=== PATIENT | male | born 1965 | race Caucasian/White ===

== ENCOUNTER 2018-01-15 13:08 | Emergency (ER) | payer OTHER ==
[2018-01-15] MEDS: morphine 10 MG INJ IM (17:18)
[2018-01-15 17:31] LABS: ADD UMIC NO; UR ASCORBIC ACID NEGATIVE (NEGATIVE); UR BILIRUBIN (Dip) NEGATIVE (NEGATIVE); UR BLOOD (Dip) NEGATIVE (NEGATIVE); UR CLARITY CLEAR (CLEAR); UR COLOR YELLOW (YELLOW); UR GLUCOSE (Dip) 3+ mg/dL (NEGATIVE); UR KETONES (Dip) TRACE mg/dL (NEGATIVE); UR LEUKOCYTE ESTERASE (Dip) NEGATIVE Leu/ul (NEGATIVE); UR NITRITE (Dip) NEGATIVE (NEGATIVE); UR TOTAL PROTEIN (Dip) NEGATIVE (NEGATIVE); UR UROBILINOGEN (Dip) NEGATIVE (NEGATIVE)
== END 2018-01-15 20:53 | disposition home or self-care (01) ==
LOC: E/R 13:08
DX: S70.02XA Contusion of left hip, initial encounter (principal); S80.02XA Contusion of left knee, initial encounter; E11.9 Type 2 diabetes mellitus without complications; I10 Essential (primary) hypertension; W18.39XA Other fall on same level, initial encounter; Y92.9 Unspecified place or not applicable; Z79.82 Long term (current) use of aspirin; Z79.4 Long term (current) use of insulin
CPT/HCPCS: 72100; 72170; 73510; 73562; 81003; 82962; 96372; 99284-25

== ENCOUNTER 2018-05-03 14:42 | Emergency (ER) | payer OTHER ==
[2018-05-03] MEDS: KETOROLAC 60 MG INJ IM (16:48)
== END 2018-05-03 17:46 | disposition home or self-care (01) ==
LOC: FTE 14:42
DX: M54.5 Low back pain (principal); I10 Essential (primary) hypertension; E11.9 Type 2 diabetes mellitus without complications; Z76.0 Encounter for issue of repeat prescription; Z79.4 Long term (current) use of insulin; Z79.82 Long term (current) use of aspirin; Z96.659 Presence of unspecified artificial knee joint
CPT/HCPCS: 96372; 99284-25

== ENCOUNTER 2019-06-21 10:06 | Inpatient (IN) | payer OTHER ==
[~2019-06-21 10:06] MED LIST: CEFAZOLIN 2 GM/50 ML (PMX) 50 ML IVPB
[2019-06-21] MEDS: SOD CHLORIDE 0.9% 1,000 ML IV (10:53)
[2019-06-21] MEDS ORDERED: LIDOCAINE 1% (MPF) 30 ML INJ (12:08)
[2019-06-21] MEDS ORDERED: HYDROmorphONE 2 MG/ML SYG (12:54)
[2019-06-21] MEDS ORDERED: ROCURONIUM 50 MG INJ (12:54)
[2019-06-21] MEDS ORDERED: PROPOFOL 20 ML (12:54)
[2019-06-21] MEDS ORDERED: LIDOCAINE 2% (SDV) 5 ML INJ (12:54)
[2019-06-21] MEDS ORDERED: MIDAZOLAM 1 MG/ML 2 ML INJ (12:55)
[2019-06-21] MEDS ORDERED: DEXAMETHASONE 4 MG/ML 5 ML INJ (13:27)
[2019-06-21] MEDS ORDERED: ONDANSETRON 4 MG INJ ×2 (13:27→13:44)
[2019-06-21] MEDS ORDERED: CEFAZOLIN 1 GM INJ (13:27)
[2019-06-21] MEDS ORDERED: LABETALOL HCL 20MG INJ (14:16)
[2019-06-21] MEDS: CEFAZOLIN 1 GM INJ (14:35)
[2019-06-21] MEDS: GELATIN SIZE 100 SPONGE (14:35)
[2019-06-21] MEDS: THROMBIN 5000 UNIT (RECOTHROM) VIAL (14:36)
[2019-06-21] MEDS: HEPARIN 1000 UNITS/ML 10 ML INJ (14:39)
[2019-06-21] MEDS ORDERED: ROPIVACAINE 0.5 % 30 ML VIAL (17:42)
[2019-06-21] MEDS ORDERED: DIPHENHYDRAMINE 50 MG CAP PO (18:30)
[2019-06-21] MEDS ORDERED: CEPASTAT LOZENGE MT (18:30)
[2019-06-21] MEDS ORDERED: AL HYDROX/MG HYDROX/SIMETH 30 ML CUP PO (18:30)
[2019-06-21] MEDS ORDERED: ACETAMINOPHEN 325 MG TAB PO (18:30)
[2019-06-21] MEDS ORDERED: morphine 1 MG/ML 30 ML (PCA) IV ×2 (18:30→19:00)
[2019-06-21] MEDS ORDERED: NALOXONE (0.4 MG/ML) INJ IV (18:30)
[2019-06-21] MEDS: BUPIVACAINE 0.5%/EPI (SDV) 30 ML INJ (18:38)
[2019-06-21] MEDS ORDERED: SUGAMMADEX SODIUM 200 MG/2 ML VIAL IV (18:38)
[2019-06-21] MEDS ORDERED: FENTAnyl 50 MCG/ML VIAL (18:38)
[2019-06-21] MEDS ORDERED: HYDROmorphONE 1 MG/5 ML IV SYRINGE IV ×3 (19:00→19:05)
[2019-06-21] MEDS ORDERED: ONDANSETRON 4 MG INJ IV (19:00)
[2019-06-21] MEDS ORDERED: HYDROmorphONE 1 MG/ML SYG (19:02)
[2019-06-21] MEDS: HYDROmorphONE 1 MG/5 ML IV SYRINGE IV (19:13)
[2019-06-21] MEDS ORDERED: HYDROmorphONE 0.2 MG/ML PCA (19:18)
[2019-06-21] MEDS: HYDROmorphONE 0.2 MG/ML PCA IV (19:44)
[2019-06-21] MEDS: SOD CHLORIDE 0.45% 1,000 ML IV (21:36)
[2019-06-21] MEDS: ACETAMINOPHEN 1000MG/100ML IV 100 ML IVPB (21:48)
[2019-06-21] MEDS: DIAZEPAM 5 MG TAB PO (22:26)
[2019-06-21] MEDS: ALPRAZOLAM 1 MG TAB PO (23:16)
[2019-06-22] MEDS ORDERED: GLUCOSE GEL 15 GRAM TUBE PO ×2 (00:30)
[2019-06-22] MEDS ORDERED: GLUCOSE GEL 15 GRAM TUBE BUCCAL (00:30)
[2019-06-22] MEDS ORDERED: GLUCAGON 1 MG INJ IM (00:30)
[2019-06-22] MEDS ORDERED: DEXTROSE 50% 50 ML SYRINGE IV ×2 (00:30)
[2019-06-22] MEDS: CEFAZOLIN 1 GM/50 ML (PMX) 50 ML IVPB ×5 (00:35→23:15)
[2019-06-22] MEDS: HYDROmorphONE 0.2 MG/ML PCA IV ×3 (01:07→22:17)
[2019-06-22] MEDS ORDERED: ACCU-CHEK XX (02:00)
[2019-06-22] MEDS: ACCU-CHEK XX (02:22)
[2019-06-22] MEDS: SOD CHLORIDE 0.45% 1,000 ML IV ×3 (04:26→17:41)
[2019-06-22 05:13] LABS: ADD MAN DIFF? NO
[2019-06-22 05:15] LABS: WHITE BLOOD COUNT 14.3 10^3/ul (4.8-10.8)
[2019-06-22 05:15] LABS: BASOPHILS % 0.1 % (0.0-2.0); HEMOGLOBIN 12.2 g/dl (14.0-18.0); LYMPHOCYTES # 1.3 10^3/ul (0.8-2.9); LYMPHOCYTES % 8.8 % (15.0-51.0); MEAN CORPUSCULAR HEMOGLOBIN 30.3 pg (29.0-33.0); MEAN CORPUSCULAR HGB CONC 32.1 g/dl (32.0-37.0); MEAN CORPUSCULAR VOLUME 94.3 fl (82.0-101.0); MEAN PLATELET VOLUME 11.4 fl (7.4-10.4); MONOCYTE # 1.1 10^3/ul (0.3-0.9); MONOCYTES % 7.7 % (0.0-11.0); NEUTROPHIL # 11.9 10^3/ul (1.6-7.5); NEUTROPHILS % 82.8 % (39.0-77.0); PLATELET COUNT 298 10^3/UL (140-415); RED BLOOD COUNT 4.03 10^6/ul (4.70-6.10)
[2019-06-22 05:40] LABS: ANION GAP 7 (5-13); BLOOD UREA NITROGEN 19 mg/dl (7-20); CALCIUM 8.8 mg/dl (8.4-10.2); CARBON DIOXIDE 25 mmol/L (21-31); CHLORIDE 103 mmol/L (97-110); CREATININE 0.62 mg/dl (0.61-1.24); Estimated GFR > 60 mL/min (>60); GLUCOSE 227 mg/dl (70-220); POTASSIUM 4.5 mmol/L (3.5-5.1); SODIUM 135 mmol/L (135-144)
[2019-06-22] MEDS ORDERED: CEFAZOLIN 1 GM INJ ×4 (06:49→14:25)
[2019-06-22] MEDS ORDERED: MIDAZOLAM 1 MG/ML 2 ML INJ (07:43)
[2019-06-22] MEDS ORDERED: INSULIN ASPART [NOVOLOG] 3 ML PEN SC (07:50)
[2019-06-22] MEDS: INSULIN ASPART [NOVOLOG] 3 ML PEN SC ×4 (07:50→21:44)
[2019-06-22] MEDS ORDERED: morphine 10 MG INJ ×2 (08:18→11:38)
[2019-06-22] MEDS ORDERED: METOPROLOL (XL) 25 MG TAB PO (09:00)
[2019-06-22] MEDS: FERROUS SULFATE (EC) 325 MG TAB PO ×3 (09:00→20:23)
[2019-06-22] MEDS: METOPROLOL (XL) 25 MG TAB PO (09:00)
[2019-06-22] MEDS ORDERED: AMLODIPINE 10 MG TAB PO (09:00)
[2019-06-22] MEDS: DOCUSATE SODIUM 100 MG CAP PO ×2 (09:00→20:23)
[2019-06-22] MEDS: AMLODIPINE 10 MG TAB PO (09:00)
[2019-06-22] MEDS: POLYMYXIN/BACITRACIN 1L IRRIG IRR (09:37)
[2019-06-22] MEDS: LIDOCAINE 1%/EPI (1:100,000) (MDV) 20 ML (09:37)
[2019-06-22] MEDS: THROMBIN 5000 UNIT (RECOTHROM) VIAL (09:38)
[2019-06-22] MEDS: GELATIN SIZE 100 SPONGE (09:38)
[2019-06-22] MEDS: VANCOMYCIN 1 GM INJ (14:20)
[2019-06-22] MEDS ORDERED: PROPOFOL 100 ML (14:24)
[2019-06-22] MEDS ORDERED: LIDOCAINE 2% (SDV) 5 ML INJ (14:24)
[2019-06-22] MEDS ORDERED: ROCURONIUM 50 MG INJ (14:24)
[2019-06-22] MEDS ORDERED: ONDANSETRON 4 MG INJ (14:30)
[2019-06-22] MEDS ORDERED: NACL 0.9% 3 ML SYG IV (15:00)
[2019-06-22] MEDS ORDERED: BETHANECHOL 25 MG TAB PO (15:00)
[2019-06-22] MEDS ORDERED: MEPERIDINE 25 MG INJ (15:07)
[2019-06-22] MEDS: MEPERIDINE 25 MG INJ IV (15:24)
[2019-06-22] MEDS ORDERED: DIPHENHYDRAMINE 50 MG INJ IV (15:30)
[2019-06-22] MEDS ORDERED: HYDROmorphONE 1 MG/5 ML IV SYRINGE IV (15:30)
[2019-06-22] MEDS ORDERED: ONDANSETRON 4 MG INJ IV (15:30)
[2019-06-22] MEDS ORDERED: METOCLOPRAMIDE 10 MG INJ IV (15:30)
[2019-06-22] MEDS ORDERED: FENTAnyl 50 MCG/ML VIAL IV (15:30)
[2019-06-22] MEDS ORDERED: ACETAMINOPHEN 1000MG/100ML IV 100 ML IVPB (15:30)
[2019-06-22] MEDS ORDERED: morphine 2 MG INJ IV (15:30)
[2019-06-22] MEDS ORDERED: LABETALOL HCL 20MG INJ IV (15:30)
[2019-06-22] MEDS: morphine 2 MG INJ IV (15:35)
[2019-06-22] MEDS: INSULIN REGULAR, HUMAN 100 UNIT/1 ML 3ML VIAL SC (15:40)
[2019-06-22] MEDS: HYDROmorphONE 1 MG/5 ML IV SYRINGE IV ×2 (16:03→16:24)
[2019-06-22] MEDS: morphine 4 MG/ML VIAL IV ×2 (17:07→20:21)
[2019-06-22] MEDS: ACETAMINOPHEN 1000MG/100ML IV 100 ML IVPB ×2 (17:07→23:15)
[2019-06-22] MEDS: INSULIN GLARGINE [LANTus] (100 UNITS/ML) SYG SC (21:42)
[2019-06-23] MEDS: morphine 4 MG/ML VIAL IV ×8 (00:01→22:12)
[2019-06-23] MEDS: ALPRAZOLAM 1 MG TAB PO ×2 (00:02→22:12)
[2019-06-23] MEDS: SOD CHLORIDE 0.45% 1,000 ML IV ×4 (00:54→17:09)
[2019-06-23] MEDS ORDERED: ACCU-CHEK XX (02:00)
[2019-06-23] MEDS: ACCU-CHEK XX (02:00)
[2019-06-23] MEDS: DIAZEPAM 5 MG TAB PO ×4 (03:20→22:07)
[2019-06-23] MEDS: HYDROmorphONE 0.2 MG/ML PCA IV (04:23)
[2019-06-23] MEDS: ONDANSETRON 4 MG INJ IV ×4 (04:28→22:07)
[2019-06-23 05:02] LABS: ADD MAN DIFF? NO
[2019-06-23] MEDS: ACETAMINOPHEN 1000MG/100ML IV 100 ML IVPB ×2 (05:03→12:37)
[2019-06-23] MEDS: CEFAZOLIN 1 GM/50 ML (PMX) 50 ML IVPB ×2 (05:04→12:59)
[2019-06-23 05:05] LABS: BASOPHILS % 0.1 % (0.0-2.0); EOSINOPHILS % 0.1 % (0.0-7.0); HEMATOCRIT 34.5 % (42.0-52.0); HEMOGLOBIN 11.1 g/dl (14.0-18.0); LYMPHOCYTES # 1.7 10^3/ul (0.8-2.9); MEAN CORPUSCULAR HEMOGLOBIN 30.9 pg (29.0-33.0); MEAN CORPUSCULAR HGB CONC 32.2 g/dl (32.0-37.0); MEAN CORPUSCULAR VOLUME 96.1 fl (82.0-101.0); MONOCYTE # 1.1 10^3/ul (0.3-0.9); MONOCYTES % 7.5 % (0.0-11.0); NEUTROPHIL # 12.1 10^3/ul (1.6-7.5); NEUTROPHILS % 80.9 % (39.0-77.0); PLATELET COUNT 230 10^3/UL (140-415); RED BLOOD COUNT 3.59 10^6/ul (4.70-6.10); RED CELL DISTRIBUTION WIDTH 12.6 % (11.5-14.5)
[2019-06-23 05:25] LABS: ANION GAP 3 (5-13); BLOOD UREA NITROGEN 9 mg/dl (7-20); CALCIUM 8.2 mg/dl (8.4-10.2); CARBON DIOXIDE 33 mmol/L (21-31); CHLORIDE 99 mmol/L (97-110); Estimated GFR > 60 mL/min (>60); GLUCOSE 159 mg/dl (70-220); POTASSIUM 3.8 mmol/L (3.5-5.1); SODIUM 135 mmol/L (135-144)
[2019-06-23] MEDS: DOCUSATE SODIUM 100 MG CAP PO ×3 (08:51→20:37)
[2019-06-23] MEDS: AMLODIPINE 10 MG TAB PO (08:51)
[2019-06-23] MEDS: FERROUS SULFATE (EC) 325 MG TAB PO ×5 (08:51→20:37)
[2019-06-23] MEDS: METOPROLOL (XL) 25 MG TAB PO (08:52)
[2019-06-23] MEDS: ENOXAPARIN 40 MG/0.4 ML SYG SC (08:55)
[2019-06-23] MEDS: INSULIN ASPART [NOVOLOG] 3 ML PEN SC ×4 (08:56→21:00)
[2019-06-23] MEDS: KETOROLAC 30 MG INJ IV (09:54)
[2019-06-23] MEDS: PANTOPRAZOLE 40 MG INJ IV (10:32)
[2019-06-23 11:13] LABS: ADD UMIC YES; UR ASCORBIC ACID NEGATIVE (NEGATIVE); UR BACTERIA FEW /HPF (NONE SEEN); UR BILIRUBIN (Dip) NEGATIVE (NEGATIVE); UR BLOOD (Dip) 2+ mg/dL (NEGATIVE); UR CLARITY CLEAR (CLEAR); UR COLOR YELLOW (YELLOW); UR GLUCOSE (Dip) 3+ mg/dL (NEGATIVE); UR KETONES (Dip) 2+ mg/dL (NEGATIVE); UR LEUKOCYTE ESTERASE (Dip) NEGATIVE Leu/ul (NEGATIVE); UR NITRITE (Dip) NEGATIVE (NEGATIVE); UR RBC 32 /HPF (0-5); UR SPECIFIC GRAVITY (Dip) 1.017 (1.003-1.030); UR TOTAL PROTEIN (Dip) NEGATIVE (NEGATIVE); UR UROBILINOGEN (Dip) NEGATIVE (NEGATIVE); UR WBC 1 /HPF (0-5)
[2019-06-23 12:10] LABS: HEMATOCRIT 34.9 % (42.0-52.0); HEMOGLOBIN 11.5 g/dl (14.0-18.0)
[2019-06-23] MEDS: METOCLOPRAMIDE 10 MG INJ IV (17:42)
[2019-06-23] MEDS: HYDROCODONE/APAP (10/325) TAB PO (20:37)
[2019-06-23] MEDS: INSULIN GLARGINE [LANTus] (100 UNITS/ML) SYG SC (20:40)
[2019-06-24] MEDS: METOCLOPRAMIDE 10 MG INJ IV ×5 (00:53→17:12)
[2019-06-24] MEDS: morphine 4 MG/ML VIAL IV ×7 (00:55→18:55)
[2019-06-24] MEDS: ACCU-CHEK XX (02:00)
[2019-06-24] MEDS: HYDROCODONE/APAP (10/325) TAB PO ×2 (03:23→09:00)
[2019-06-24] MEDS: PANTOPRAZOLE 40 MG INJ IV (04:31)
[2019-06-24] MEDS: ONDANSETRON 4 MG INJ IV ×2 (04:31→14:35)
[2019-06-24] MEDS: SOD CHLORIDE 0.45% 1,000 ML IV ×2 (04:40→14:47)
[2019-06-24 04:54] LABS: ADD MAN DIFF? NO
[2019-06-24 05:04] LABS: WHITE BLOOD COUNT 19.1 10^3/ul (4.8-10.8)
[2019-06-24 05:04] LABS: BASOPHILS % 0.2 % (0.0-2.0); EOSINOPHILS % 0.1 % (0.0-7.0); HEMATOCRIT 33.9 % (42.0-52.0); LYMPHOCYTES # 0.9 10^3/ul (0.8-2.9); LYMPHOCYTES % 4.6 % (15.0-51.0); MEAN CORPUSCULAR HEMOGLOBIN 30.6 pg (29.0-33.0); MEAN CORPUSCULAR HGB CONC 32.4 g/dl (32.0-37.0); MEAN CORPUSCULAR VOLUME 94.2 fl (82.0-101.0); MEAN PLATELET VOLUME 11.1 fl (7.4-10.4); MONOCYTE # 1.3 10^3/ul (0.3-0.9); MONOCYTES % 6.9 % (0.0-11.0); NEUTROPHIL # 16.7 10^3/ul (1.6-7.5); NEUTROPHILS % 87.5 % (39.0-77.0); PLATELET COUNT 265 10^3/UL (140-415)
[2019-06-24 05:22] LABS: IRON 19 ug/dl (35-150)
[2019-06-24 05:26] LABS: ANION GAP 11 (5-13); BLOOD UREA NITROGEN 11 mg/dl (7-20); CALCIUM 8.7 mg/dl (8.4-10.2); CARBON DIOXIDE 24 mmol/L (21-31); CHLORIDE 98 mmol/L (97-110); CREATININE 0.63 mg/dl (0.61-1.24); Estimated GFR > 60 mL/min (>60); GLUCOSE 206 mg/dl (70-220); POTASSIUM 4.3 mmol/L (3.5-5.1); SODIUM 133 mmol/L (135-144)
[2019-06-24 05:31] LABS: % IRON SATURATION 8 % SAT (22-52); TOTAL IRON BINDING CAPACITY 233 ug/dl (241-421)
[2019-06-24] MEDS: INSULIN ASPART [NOVOLOG] 3 ML PEN SC ×4 (08:59→20:46)
[2019-06-24] MEDS: DIAZEPAM 5 MG TAB PO ×2 (08:59→17:38)
[2019-06-24] MEDS: DOCUSATE SODIUM 100 MG CAP PO ×2 (09:00→20:40)
[2019-06-24] MEDS: AMLODIPINE 10 MG TAB PO (09:00)
[2019-06-24] MEDS: METOPROLOL (XL) 25 MG TAB PO (09:00)
[2019-06-24] MEDS: FERROUS SULFATE (EC) 325 MG TAB PO ×3 (09:00→20:40)
[2019-06-24] MEDS: CEFAZOLIN 2 GM/50 ML (PMX) 50 ML IVPB ×3 (10:02→22:16)
[2019-06-24] MEDS ORDERED: BISACODYL 10 MG SUPP PR (14:30)
[2019-06-24] MEDS: KETOROLAC 30 MG INJ IV ×2 (14:35→22:17)
[2019-06-24] MEDS ORDERED: SOD CHLORIDE 0.9% IVPB (15:00)
[2019-06-24] MEDS ORDERED: SOD FERRIC GLUC COMPLX IVPB (15:00)
[2019-06-24] MEDS: INSULIN GLARGINE [LANTus] (100 UNITS/ML) SYG SC (20:48)
[2019-06-24] MEDS: HYDROmorphONE 2 MG/ML SYG IV (20:49)
[2019-06-24] MEDS: ALPRAZOLAM 1 MG TAB PO (22:26)
[2019-06-25] MEDS: METOCLOPRAMIDE 10 MG INJ IV ×4 (00:46→17:50)
[2019-06-25] MEDS: HYDROmorphONE 2 MG/ML SYG IV ×6 (01:25→22:11)
[2019-06-25] MEDS: SOD CHLORIDE 0.45% 1,000 ML IV ×2 (01:25→02:54)
[2019-06-25] MEDS: ACCU-CHEK XX (02:00)
[2019-06-25 05:26] LABS: ADD MAN DIFF? NO
[2019-06-25] MEDS: CEFAZOLIN 2 GM/50 ML (PMX) 50 ML IVPB ×3 (05:32→22:10)
[2019-06-25] MEDS: PANTOPRAZOLE 40 MG INJ IV (05:32)
[2019-06-25 05:41] LABS: BASOPHILS % 0.2 % (0.0-2.0); EOSINOPHILS # 0.6 10^3/ul (0.0-0.5); EOSINOPHILS % 4.3 % (0.0-7.0); HEMATOCRIT 29.3 % (42.0-52.0); HEMOGLOBIN 9.5 g/dl (14.0-18.0); LYMPHOCYTES # 1.9 10^3/ul (0.8-2.9); LYMPHOCYTES % 14.2 % (15.0-51.0); MEAN CORPUSCULAR HEMOGLOBIN 31.1 pg (29.0-33.0); MEAN CORPUSCULAR HGB CONC 32.4 g/dl (32.0-37.0); MEAN CORPUSCULAR VOLUME 96.1 fl (82.0-101.0); MEAN PLATELET VOLUME 11.4 fl (7.4-10.4); MONOCYTE # 1.3 10^3/ul (0.3-0.9); MONOCYTES % 10.2 % (0.0-11.0); NEUTROPHIL # 9.3 10^3/ul (1.6-7.5); NEUTROPHILS % 70.6 % (39.0-77.0); PLATELET COUNT 230 10^3/UL (140-415); RED BLOOD COUNT 3.05 10^6/ul (4.70-6.10); RED CELL DISTRIBUTION WIDTH 12.3 % (11.5-14.5)
[2019-06-25 05:41] LABS: WHITE BLOOD COUNT 13.1 10^3/ul (4.8-10.8)
[2019-06-25 05:56] LABS: ANION GAP 4 (5-13); BLOOD UREA NITROGEN 17 mg/dl (7-20); CALCIUM 8.1 mg/dl (8.4-10.2); CARBON DIOXIDE 31 mmol/L (21-31); CHLORIDE 98 mmol/L (97-110); CREATININE 0.64 mg/dl (0.61-1.24); Estimated GFR > 60 mL/min (>60); GLUCOSE 239 mg/dl (70-220); POTASSIUM 3.5 mmol/L (3.5-5.1); SODIUM 133 mmol/L (135-144)
[2019-06-25] MEDS: METOPROLOL (XL) 25 MG TAB PO (09:01)
[2019-06-25] MEDS: DOCUSATE SODIUM 100 MG CAP PO ×2 (09:01→20:30)
[2019-06-25] MEDS: AMLODIPINE 10 MG TAB PO (09:01)
[2019-06-25] MEDS: FERROUS SULFATE (EC) 325 MG TAB PO ×3 (09:01→20:25)
[2019-06-25] MEDS: INSULIN ASPART [NOVOLOG] 3 ML PEN SC ×4 (09:02→20:29)
[2019-06-25 11:20] LABS: ADD MAN DIFF? NO
[2019-06-25 11:23] LABS: HEMATOCRIT 29.6 % (42.0-52.0)
[2019-06-25 11:23] LABS: HEMOGLOBIN 9.6 g/dl (14.0-18.0)
[2019-06-25 14:17] LABS: WHITE BLOOD COUNT 15.8 10^3/ul (4.8-10.8)
[2019-06-25 14:17] LABS: BASOPHILS % 0.1 % (0.0-2.0); EOSINOPHILS # 0.5 10^3/ul (0.0-0.5); HEMATOCRIT 30.3 % (42.0-52.0); HEMOGLOBIN 9.7 g/dl (14.0-18.0); LYMPHOCYTES # 1.1 10^3/ul (0.8-2.9); LYMPHOCYTES % 7.2 % (15.0-51.0); MEAN CORPUSCULAR HEMOGLOBIN 30.6 pg (29.0-33.0); MEAN CORPUSCULAR VOLUME 95.6 fl (82.0-101.0); MEAN PLATELET VOLUME 11.9 fl (7.4-10.4); MONOCYTE # 1.4 10^3/ul (0.3-0.9); MONOCYTES % 8.6 % (0.0-11.0); NEUTROPHIL # 12.7 10^3/ul (1.6-7.5); NEUTROPHILS % 80.5 % (39.0-77.0); PLATELET COUNT 286 10^3/UL (140-415); RED BLOOD COUNT 3.17 10^6/ul (4.70-6.10); RED CELL DISTRIBUTION WIDTH 12.4 % (11.5-14.5)
[2019-06-25] MEDS: LINAGLIPTIN 5 MG TABLET PO (14:43)
[2019-06-25] MEDS: SOD FERRIC GLUC COMPLX 125 MG in SOD CHLORIDE 0.9% 100 ML IVPB (15:45)
[2019-06-25] MEDS: KETOROLAC 30 MG INJ IV ×2 (15:45→23:39)
[2019-06-25] MEDS: DIAZEPAM 5 MG TAB PO (16:41)
[2019-06-25] MEDS: INSULIN GLARGINE [LANTus] (100 UNITS/ML) SYG SC (20:28)
[2019-06-25] MEDS: ALPRAZOLAM 1 MG TAB PO (23:26)
[2019-06-26] MEDS: ACCU-CHEK XX (02:15)
[2019-06-26] MEDS: HYDROmorphONE 2 MG/ML SYG IV ×4 (02:21→15:06)
[2019-06-26] MEDS: DIAZEPAM 5 MG TAB PO ×2 (05:09→19:50)
[2019-06-26 05:18] LABS: ADD MAN DIFF? NO
[2019-06-26 05:23] LABS: WHITE BLOOD COUNT 11.6 10^3/ul (4.8-10.8)
[2019-06-26 05:23] LABS: BASOPHILS % 0.3 % (0.0-2.0); EOSINOPHILS # 0.7 10^3/ul (0.0-0.5); EOSINOPHILS % 6.3 % (0.0-7.0); HEMOGLOBIN 8.7 g/dl (14.0-18.0); LYMPHOCYTES # 1.9 10^3/ul (0.8-2.9); LYMPHOCYTES % 16.4 % (15.0-51.0); MEAN CORPUSCULAR HEMOGLOBIN 30.3 pg (29.0-33.0); MEAN CORPUSCULAR HGB CONC 32.2 g/dl (32.0-37.0); MEAN CORPUSCULAR VOLUME 94.1 fl (82.0-101.0); MEAN PLATELET VOLUME 11.3 fl (7.4-10.4); MONOCYTE # 1.4 10^3/ul (0.3-0.9); MONOCYTES % 11.7 % (0.0-11.0); NEUTROPHIL # 7.5 10^3/ul (1.6-7.5); NEUTROPHILS % 64.9 % (39.0-77.0); PLATELET COUNT 263 10^3/UL (140-415); RED BLOOD COUNT 2.87 10^6/ul (4.70-6.10); RED CELL DISTRIBUTION WIDTH 12.4 % (11.5-14.5)
[2019-06-26 05:44] LABS: ANION GAP 4 (5-13); BLOOD UREA NITROGEN 15 mg/dl (7-20); CARBON DIOXIDE 34 mmol/L (21-31); CHLORIDE 97 mmol/L (97-110); CREATININE 0.56 mg/dl (0.61-1.24); Estimated GFR > 60 mL/min (>60); GLUCOSE 188 mg/dl (70-220); POTASSIUM 3.3 mmol/L (3.5-5.1); SODIUM 135 mmol/L (135-144)
[2019-06-26] MEDS: PANTOPRAZOLE 40 MG INJ IV (06:04)
[2019-06-26] MEDS: METOCLOPRAMIDE 10 MG INJ IV ×5 (06:05→23:58)
[2019-06-26] MEDS: KETOROLAC 30 MG INJ IV (06:05)
[2019-06-26] MEDS: CEFAZOLIN 2 GM/50 ML (PMX) 50 ML IVPB ×2 (06:05→15:07)
[2019-06-26 07:43] LABS: OCCULT BLOOD STOOL NEGATIVE (NEGATIVE)
[2019-06-26] MEDS: DOCUSATE SODIUM 100 MG CAP PO ×2 (08:20→20:38)
[2019-06-26] MEDS: INSULIN ASPART [NOVOLOG] 3 ML PEN SC ×5 (08:20→20:45)
[2019-06-26] MEDS: LINAGLIPTIN 5 MG TABLET PO (08:21)
[2019-06-26] MEDS: FERROUS SULFATE (EC) 325 MG TAB PO ×3 (08:21→20:38)
[2019-06-26] MEDS: METOPROLOL (XL) 25 MG TAB PO (08:22)
[2019-06-26] MEDS: AMLODIPINE 10 MG TAB PO (08:22)
[2019-06-26 09:46] LABS: RETICULOCYTE COUNT # 0.066 X10^6 (0.020-0.110); RETICULOCYTE COUNT % 2.3 % (0.5-1.5)
[2019-06-26 09:46] LABS: RETICULOCYTE RBC 2.82
[2019-06-26 09:47] LABS: IRON 27 ug/dl (35-150)
[2019-06-26 09:56] LABS: % IRON SATURATION 13 % SAT (22-52); TOTAL IRON BINDING CAPACITY 210 ug/dl (241-421)
[2019-06-26 10:54] LABS: FOLATE 6.3 ng/ml (2.8-20.0)
[2019-06-26] MEDS: SOD FERRIC GLUC COMPLX 125 MG in SOD CHLORIDE 0.9% 100 ML IVPB (13:43)
[2019-06-26] MEDS: POTASSIUM CHLORIDE (SR) 20 MEQ TAB PO (17:52)
[2019-06-26] MEDS: HYDROmorphONE 1 MG/ML SYG IV ×2 (19:44→23:58)
[2019-06-26] MEDS: ALPRAZOLAM 1 MG TAB PO (20:38)
[2019-06-26] MEDS: INSULIN GLARGINE [LANTus] (100 UNITS/ML) SYG SC (20:44)
[2019-06-27] MEDS: ACCU-CHEK XX ×2 (02:00)
[2019-06-27] MEDS: HYDROmorphONE 1 MG/ML SYG IV ×3 (04:10→12:16)
[2019-06-27 05:08] LABS: ADD MAN DIFF? NO
[2019-06-27 05:15] LABS: WHITE BLOOD COUNT 13.9 10^3/ul (4.8-10.8)
[2019-06-27 05:15] LABS: ABNORMAL IP MESSAGE 1; BASOPHILS % 0.3 % (0.0-2.0); EOSINOPHILS # 0.6 10^3/ul (0.0-0.5); EOSINOPHILS % 4.1 % (0.0-7.0); HEMATOCRIT 27.3 % (42.0-52.0); HEMOGLOBIN 8.9 g/dl (14.0-18.0); LYMPHOCYTES # 1.8 10^3/ul (0.8-2.9); LYMPHOCYTES % 12.8 % (15.0-51.0); MEAN CORPUSCULAR HEMOGLOBIN 30.8 pg (29.0-33.0); MEAN CORPUSCULAR HGB CONC 32.6 g/dl (32.0-37.0); MEAN CORPUSCULAR VOLUME 94.5 fl (82.0-101.0); MONOCYTES % 14.3 % (0.0-11.0); NEUTROPHIL # 9.5 10^3/ul (1.6-7.5); NEUTROPHILS % 67.9 % (39.0-77.0); PLATELET COUNT 300 10^3/UL (140-415); POSITIVE DIFF @See below; RED BLOOD COUNT 2.89 10^6/ul (4.70-6.10); RED CELL DISTRIBUTION WIDTH 12.5 % (11.5-14.5)
[2019-06-27 05:25] LABS: PHOSPHORUS 3.1 mg/dl (2.5-4.9)
[2019-06-27 05:25] LABS: MAGNESIUM 1.8 mg/dl (1.7-2.5)
[2019-06-27] MEDS: PANTOPRAZOLE (EC) 40 MG TAB PO (05:26)
[2019-06-27] MEDS: METOCLOPRAMIDE 10 MG INJ IV ×3 (05:26→17:04)
[2019-06-27] MEDS: DIAZEPAM 5 MG TAB PO ×3 (05:26→17:04)
[2019-06-27 05:29] LABS: ANION GAP 7 (5-13); BLOOD UREA NITROGEN 10 mg/dl (7-20); CALCIUM 8.1 mg/dl (8.4-10.2); CARBON DIOXIDE 32 mmol/L (21-31); CHLORIDE 97 mmol/L (97-110); CREATININE 0.52 mg/dl (0.61-1.24); Estimated GFR > 60 mL/min (>60); GLUCOSE 207 mg/dl (70-220); POTASSIUM 3.7 mmol/L (3.5-5.1); SODIUM 136 mmol/L (135-144)
[2019-06-27] MEDS: METOPROLOL (XL) 25 MG TAB PO (08:17)
[2019-06-27] MEDS: DOCUSATE SODIUM 100 MG CAP PO ×2 (08:17→20:25)
[2019-06-27] MEDS: FERROUS SULFATE (EC) 325 MG TAB PO ×3 (08:18→20:25)
[2019-06-27] MEDS: AMLODIPINE 10 MG TAB PO (08:18)
[2019-06-27] MEDS: INSULIN ASPART [NOVOLOG] 3 ML PEN SC ×7 (08:36→20:31)
[2019-06-27] MEDS: LINAGLIPTIN 5 MG TABLET PO (12:15)
[2019-06-27] MEDS: SOD FERRIC GLUC COMPLX 125 MG in SOD CHLORIDE 0.9% 100 ML IVPB (12:22)
[2019-06-27] MEDS: HYDROmorphONE 4 MG TAB PO (16:24)
[2019-06-27] MEDS: INSULIN GLARGINE [LANTus] (100 UNITS/ML) SYG SC (20:32)
[2019-06-27] MEDS: HYDROmorphONE 2 MG TAB PO (20:35)
[2019-06-28] MEDS: HYDROmorphONE 2 MG TAB PO ×5 (00:26→16:20)
[2019-06-28] MEDS: ALPRAZOLAM 1 MG TAB PO (00:26)
[2019-06-28] MEDS: METOCLOPRAMIDE 10 MG INJ IV ×3 (00:26→12:00)
[2019-06-28] MEDS: ACCU-CHEK XX ×2 (02:00)
[2019-06-28] MEDS: DIAZEPAM 5 MG TAB PO (04:23)
[2019-06-28] MEDS: PANTOPRAZOLE (EC) 40 MG TAB PO (05:46)
[2019-06-28] MEDS: INSULIN ASPART [NOVOLOG] 3 ML PEN SC ×4 (09:05→13:05)
[2019-06-28] MEDS: DOCUSATE SODIUM 100 MG CAP PO (09:06)
[2019-06-28] MEDS: FERROUS SULFATE (EC) 325 MG TAB PO ×2 (09:06→13:57)
[2019-06-28] MEDS: LINAGLIPTIN 5 MG TABLET PO (09:06)
[2019-06-28] MEDS: AMLODIPINE 10 MG TAB PO (09:08)
[2019-06-28] MEDS: METOPROLOL (XL) 25 MG TAB PO (09:08)
== END 2019-06-28 17:03 | DRG 455 ==
LOC: MS1 06-28 12:10 → REC 10:06 → MS1 21:15
PROVIDERS: Neurological Surgery
PROC: 0SG30A0 Fusion of Lumbosacral Joint with Interbody Fusion Device, Anterior Approach, Anterior Column, Open Approach (ICD-10-PCS; principal; 2019-06-21 12:30)
PROC: 0SG00A0 Fusion of Lumbar Vertebral Joint with Interbody Fusion Device, Anterior Approach, Anterior Column, Open Approach (ICD-10-PCS; 2019-06-21 12:30)
PROC: 0SB20ZZ Excision of Lumbar Vertebral Disc, Open Approach (ICD-10-PCS; 2019-06-21 12:30)
PROC: 4A11X4G Monitoring of Peripheral Nervous Electrical Activity, Intraoperative, External Approach (ICD-10-PCS; 2019-06-21 12:30)
PROC: 0SG00J1 Fusion of Lumbar Vertebral Joint with Synthetic Substitute, Posterior Approach, Posterior Column, Open Approach (ICD-10-PCS; 2019-06-21 12:54)
PROC: 0SG00AJ Fusion of Lumbar Vertebral Joint with Interbody Fusion Device, Posterior Approach, Anterior Column, Open Approach (ICD-10-PCS; 2019-06-21 12:54)
PROC: 0SG30J1 Fusion of Lumbosacral Joint with Synthetic Substitute, Posterior Approach, Posterior Column, Open Approach (ICD-10-PCS; 2019-06-21 12:54)
PROC: 0SB40ZZ Excision of Lumbosacral Disc, Open Approach (ICD-10-PCS; 2019-06-21 12:54)
DX: M96.1 Postlaminectomy syndrome, not elsewhere classified (principal); M51.16 Intervertebral disc disorders with radiculopathy, lumbar region; E11.42 Type 2 diabetes mellitus with diabetic polyneuropathy; I10 Essential (primary) hypertension; E78.5 Hyperlipidemia, unspecified; Z68.28 Body mass index [BMI] 28.0-28.9, adult; D72.829 Elevated white blood cell count, unspecified; Z98.1 Arthrodesis status; M51.17 Intervertebral disc disorders with radiculopathy, lumbosacral region; R50.82 Postprocedural fever; E66.3 Overweight
CPT/HCPCS: 71045; 72100; 72110; 72114; 72131; 80048; 81001; 82270; 82607; 82728; 82746; 82962; 83540; 83735; 84100; 85014; 85018; 85025; 85045; 86850; 86900; 86901; 86920; 87040-91; 97110; 97116; 97162; 97530